=== PATIENT | female | born 1970 | race Caucasian/White ===

== ENCOUNTER 2021-12-25 08:00 | Outpatient (RCR) | payer BC, SELFPAY | END 2022-02-19 12:18 | disposition home or self-care (01) | PROVIDERS: PCP Family Medicine; Visit Provider Physician Assistant Surgical | DX: S82.409D Unspecified fracture of shaft of unspecified fibula, subsequent encounter for closed fracture with routine healing (principal); Z51.89 Encounter for other specified aftercare | CPT/HCPCS: 97110; 97112; 97161 ==

== ENCOUNTER 2022-01-23 11:57 | Outpatient (CLI) | payer BC, SELFPAY | END 2022-01-23 11:58 | disposition home or self-care (01) | LOC: OP CLINIC 11:58 | PROVIDERS: PCP Family Medicine; Visit Provider Surgery | DX: Z12.11 Encounter for screening for malignant neoplasm of colon (principal); K63.5 Polyp of colon; K62.1 Rectal polyp; K64.4 Residual hemorrhoidal skin tags; K57.30 Diverticulosis of large intestine without perforation or abscess without bleeding; D17.5 Benign lipomatous neoplasm of intra-abdominal organs; Z86.010 Personal history of colon polyps | CPT/HCPCS: 45385; 88305; 99153; J1200; J2250; J3010 ==

== ENCOUNTER 2022-02-10 10:02 | Outpatient (CLI) | payer BC, SELFPAY ==
--- NOTE | 2022-02-10 10:15 | MR_ITS ---
[address] [address] Phone:?[phone] Fax:?[phone] Referring Physician Information: Izabela James D.O. [address] [facility] [address] Phone:?[phone] Fax:?[phone] Patient:Quique Ardon D.O.B:?1970 Sex:?Female Phone:?[phone] [facility] MRN:?[id number] Exam Date:?02/10/2022 ? EXAM: MRI EXAMINATION OF THE LEFT KNEE CLINICAL INFORMATION: Left knee pain. No specific injury. History of fibular fracture. Chronic symptoms. TECHNICAL INFORMATION: Coronal PD and STIR. Axial PD and T2 fat saturation. Sagittal PD and PD fat saturation images acquired. INTERPRETATION: Bones: There is a minimal appearance of marrow edema signal and cystic change within the tibial eminence. Localized mild marrow edema signal involves the far posterior periphery of the medial femoral condyle. Localized minimal subchondral cystic change involves the trochlear groove. No other abnormal bone marrow edema pattern is identified. Ligaments and tendons: The medial collateral ligament is intact, without acute sprain or tear. The iliotibial band, fibular collateral ligament, biceps femoris tendon and popliteus tendon all are intact. There is generalized increased signal intensity and thickening involving the anterior cruciate ligament. The posterior cruciate ligament is intact. Extensor Mechanism: The patellar and quadriceps tendons are intact. The medial and lateral retinacula are intact. Knee Joint: There is a moderate knee joint effusion. No discrete popliteal cyst. There is no discrete loose body seen within the joint. Medial Compartment: There is no evidence for discrete medial meniscal tear. No displaced flap fragment or parameniscal cyst. 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 No other significant changes of chondromalacia. Lateral Compartment: There is no evidence for discrete lateral meniscal tear. No displaced flap fragment or parameniscal cyst. There is no focal chondral defect. No other significant changes of chondromalacia. Patellofemoral articulation: There is a grade 2 appearance of chondromalacia involving the central midline patella and adjacent medial facet. There is a 1.5 cm mediolateral by 0.8 cm craniocaudal segment of grade 3 to IV chondromalacia involving the central midline and medial trochlear groove. CONCLUSION: 1. No evidence for a meniscal tear. 2. Generalized increased signal intensity and thickening in keeping with mucoid degeneration of the ACL. 3. Localized mild marrow edema signal may be related to osseous contusion involving the posterior periphery of the medial femoral condyle. 4. 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 5. 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 KES Electronically signed on 02/10/2022 2:05:00 PM by Ernst Brandon M.D.
== END 2022-02-10 10:03 | disposition home or self-care (01) ==
LOC: MRI 10:03
PROVIDERS: PCP Family Medicine; Visit Provider Family Medicine
DX: M25.562 Pain in left knee (principal); M22.42 Chondromalacia patellae, left knee; S89.92XS Unspecified injury of left lower leg, sequela
CPT/HCPCS: 73721

== ENCOUNTER 2022-04-20 20:42 | Emergency (ER) | payer BC, SELFPAY ==
[2022-04-20 20:54] VITALS: BP 187/115; PULSE 113; RESP 20; TEMP 36.4; O2SAT 98; BMI 44.1
--- NOTE | 2022-04-20 21:21 | CRLHL7_ITS ---
For Patients: As a result of the Century Cures Act, medical imaging exams and procedure reports are released immediately into your electronic medical record. You may view this report before your referring provider. If you have questions, please contact your health care provider. INDICATION: Trauma TECHNIQUE: CT thoracic spine without contrast. COMPARISON: None FINDINGS: Vertebral alignment: Alignment is normal. Vertebrae: There are no fractures or suspicious bony lesions. Discs and facet joints: Disc spaces and facets are within normal limits. Extraspinal findings: Status post cholecystectomy. Small hiatal hernia. IMPRESSION: Unremarkable thoracic spine CT. Status post cholecystectomy. Small hiatal hernia. Please note that all CT scans at this facility use dose modulation, iterative reconstruction, and/or weight-based dosing when appropriate to reduce radiation dose to as low as reasonably achievable. Dictated by Susie Espinoza MD @ 04/20/2022 11:36:16 PM (Electronically Signed)
--- NOTE | 2022-04-20 21:21 | CRLHL7_ITS ---
For Patients: As a result of the Century Cures Act, medical imaging exams and procedure reports are released immediately into your electronic medical record. You may view this report before your referring provider. If you have questions, please contact your health care provider. INDICATION: Trauma TECHNIQUE: CT cervical spine without contrast. COMPARISON: None FINDINGS: Vertebral alignment: Alignment is normal. Vertebrae: There are no fractures or suspicious bony lesions. Discs and facet joints: Unremarkable. Extraspinal findings: Paraspinous soft tissues are unremarkable. IMPRESSION: No acute fracture or subluxation. Please note that all CT scans at this facility use dose modulation, iterative reconstruction, and/or weight-based dosing when appropriate to reduce radiation dose to as low as reasonably achievable. Dictated by Susie Espinoza MD @ 04/20/2022 11:39:14 PM (Electronically Signed)
--- NOTE | 2022-04-20 21:21 | CRLHL7_ITS ---
For Patients: As a result of the Century Cures Act, medical imaging exams and procedure reports are released immediately into your electronic medical record. You may view this report before your referring provider. If you have questions, please contact your health care provider. INDICATION: Trauma. TECHNIQUE: CT chest was acquired with 100 cc Isovue 370 IV contrast. COMPARISON: None. FINDINGS: Lungs and Airways: No mass or consolidation. No endoluminal lesion. Heart and Mediastinum: The visualized portions of the thyroid are normal. No axillary or supraclavicular lymphadenopathy. No mediastinal, hilar or retrocrural lymphadenopathy. Normal heart size. Normal caliber aorta. Pleura: The pleural spaces are normal. Abdomen: Likely diffuse hepatic steatosis. Cholecystectomy. Tiny hiatal hernia. Bilateral punctate nonobstructing nephrolithiasis versus early passage of contrast into the collecting systems bilaterally. Bones and soft tissues: The skeletal structures and soft tissues of the chest wall are unremarkable. IMPRESSION: No acute traumatic injury within the chest. Please note that all CT scans at this facility use dose modulation, iterative reconstruction, and/or weight-based dosing when appropriate to reduce radiation dose to as low as reasonably achievable. Dictated by Ag Butler MD @ 04/20/2022 11:48:56 PM (Electronically Signed)
[2022-04-20 21:43] LABS: Basophils Absolute Auto 0.01 K/uL (0.00-0.30); Basophils Percent Auto 0.1 % (0.0-3.0); Eosinophils Absolute Auto 0.05 K/uL (0.00-0.50); Eosinophils Percent Auto 0.5 % (0.0-7.0); Hematocrit 47.2 % (33.0-51.0); Hemoglobin* 15.8 gm/dL (12.0-16.0); Immature Granulocytes Abs Auto 0.02 K/uL (0.00-0.30); Immature Granulocytes Pct Auto 0.2 %; Lymphocytes Percent Auto 12.8 % (20-44); Mean Corpuscular HGB Conc 34 gm/dL (32-36); Mean Corpuscular Hemoglobin 28 pg (26-34); Mean Corpuscular Volume 84 fL (80-100); Monocytes Percent Auto 5.2 % (0.0-11.0); Neutrophils Percent Auto 81.2 % (42.0-72.0); Platelet Count* 257 K/uL (140-440); RDW Coefficient of Variation % 12.8 % (11.5-15.5); White Blood Count* 10.77 K/uL (4.50-11.00)
[2022-04-20 21:57] LABS: Slide Review Reflex No
[2022-04-20 21:58] LABS: Chloride* 108 mmol/L (96-114); Potassium* 3.8 mmol/L (3.6-5.1); Sodium* 138 mmol/L (135-149)
[2022-04-20 22:01] LABS: Blood Urea Nitrogen* 18 mg/dL (7-30); Calcium* 8.7 mg/dL (8.4-10.6); Carbon Dioxide* 22 mmol/L (20-32); Creatinine* 0.9 mg/dL (0.5-1.5); Est. Creatinine Clearance* 65.05; Estimated Glomerular Filt Rate 76 ml/min; Glucose* 117 mg/dL (60-115)
[2022-04-20] MEDS: 0.9 % SODIUM CHLORIDE 1000 ml 1,000 ML IV (22:09)
[2022-04-20 23:06] VITALS: BP 151/90; PULSE 80; RESP 18; O2SAT 98
--- NOTE | 2022-04-21 00:43 | ED.GENADULT ---
HPI - General Adult General Date Seen: 04/21/22 Chief complaint: Back Injury/Pain Stated complaint: Hurt back snowwibiling Time Seen by Provider: 04/20/22 21:10 Source: patient Mode of arrival: ambulatory Limitations: no limitations History of Present Illness HPI narrative: Patient is a 51-year-old woman who was normal bili earlier today. She says that she did not see an upcoming ravine and [facility] She says that it kind of took her breath away when she had the bottom, and she did develop some pain just to the right of her thoracic spine near her shoulder blade at the time. She continued to [facility], finished out the time, went home. She says as the afternoon and evening went on, she noticed that her heart rate seemed to be elevated, and she was having trouble laying down because she would develop pain going up into her neck, and if she lays wrong she would have some tingling in her arms. She has not had any weakness or numbness. She has not had any chest pain unless she says when she hunches her shoulders forward she does have some pain in her chest. No difficulty breathing. She did not hit her head, no loss of consciousness. She does not have any neck pain specifically except what radiates up from her shoulder blade. No lower back pain, no abdominal pain. Related Data Home Medications Medication Instructions Recorded Confirmed ibuprofen 200 mg tablet mg PRN 04/20/22 Previous Rx's Medication Instructions Recorded peg 3350-electrolytes 236 240 ml PO Q10M #4,000 mL 12/18/21 gram-22.74 gram-6.74 gram-5.86 gram solution (Golytely) Allergies Allergy/AdvReac Type Severity Reaction Status Date / Time crab Allergy Unknown itchy Verified 04/20/22 22:57 tongue, lips Review of Systems Status of ROS: Reports: 10 or more systems reviewed and unremarkable except as noted in History and below PFSH PFS Surgical History History of 3 sections (2002) Status post cholecystectomy (2003) Family History Father Myocardial infarction, Onset Age: 50 Colonic polyp Stroke, Onset Age: 77 Maternal Grandfather Lung cancer Mother Blood disorder Factor V Leiden Factor II deficiency Social History Narrative: does not have regular exercise regimen , 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 Breathing: Nonlabored. Lungs clear. Circulation: Pulses intact. No external bleeding. Disability: GCS 15. Secondary survey: Vital signs reviewed In general, an alert, nontoxic Head: Normocephalic, atraumatic. Eyes: Pupils are equal reactive. Extraocular movements full. ENT: No facial trauma. Dentition intact. Neck: No midline cervical tenderness. No anterior neck trauma. Chest: No visible signs of chest trauma. No tenderness to palpation. Heart is mildly tachycardic, regular. No murmur. Lungs clear bilaterally. Abdomen: No visible signs of trauma. Soft, nondistended, nontender to palpation. Back: No visible signs of trauma. There is a little bit of tenderness just to the right of the spine near the upper scapula. Otherwise back is nontender. Extremities: Atraumatic and nontender to palpation. Neurologic: Alert, conversant, moves all extremities to command. Skin: Warm and dry, no abrasions or lacerations. Const: Vital Signs, click to edit/add: Vital Signs - 24 hr 04/20/22 20:54 04/20/22 23:06 Temperature 97.6 F Pulse Rate [Right Pulse Oximeter] 113 H 80 Respiratory Rate 20 18 Blood Pressure [Le ft Upper Arm] 187/115 H 151/90 H Pulse Oximetry 98 98 Oxygen Delivery Me thod Room Air Room Air Documenting provider has reviewed patient's vital signs: yes Course Course Hospital Course: We placed an IV here, declined anything for pain initially. My initial suspicion was for possibly a compression fracture in the upper thoracic spine. She did have mild tachycardia, raising the possibility for possibly some kind of internal bleeding, vessel injury, thoracic contusion, or other traumatic injury. I gave her a L of normal saline, I ordered CT scans of the cervical spine, thoracic spine and of the chest. She did have significant hypertension on arrival with a blood pressure of 187/115. She did not have any abdominal pain or tenderness, and mechanism seemed unlikely to generate significant abdominal trauma. I also ordered a CBC and metabolic panel. Her hemoglobin was unremarkable at 15.8. Metabolic panel was unremarkable. By my review of her CT scans she did not have any evidence of fracture of the cervical or thoracic spine, and I did not see evidence of pneumothorax, hemothorax, or other obvious traumatic injury on her chest CT. Radiology read all [address] scans as negative for acute findings. She felt improved after fluids here, her heart rate was down to 80, blood pressure was down 151/90, and she felt significantly better. We did talk about the possibility of disc herniation which we have not entirely ruled out tonight. She is neurologically intact. I think it is reasonable to let her go home, but if pain is persistent I would like her to be seen again in clinic and additional imaging may be needed. Discussed with her that if this is all soft tissue related, she should be improving over the next few days. Ibuprofen Tylenol, gave her a few oxycodone if needed over the next couple of days. Ice. Return for severe symptoms, new symptoms such as shortness of breath, fainting, or other worsening. Vital Signs Vital signs: Initial Vital Signs Temperature 97.6 F 04/20/22 20:54 Temperature Source Temporal Artery Scan 04/20/22 20:54 Pulse Rate 113 H 04/20/22 20:54 Pulse Rhythm 04/20/22 20:54 Respiratory Rate 20 04/20/22 20:54 Blood Pressure 187/115 H 04/20/22 20:54 Blood Pressure Mean 139 04/20/22 20:54 Blood Pressure Position Sitting 04/20/22 20:54 Pulse Oximetry 98 04/20/22 20:54 Oxygen Delivery Method 04/20/22 20:54 Vital Signs Temperature 97.6 F 04/20/22 20:54 Pulse Rate 113 H 04/20/22 20:54 Respiratory Rate 20 04/20/22 20:54 Blood Pressure 187/115 H 04/20/22 20:54 Pulse Oximetry 98 04/20/22 20:54 Oxygen Delivery Method 04/20/22 20:54 Temperature 97.6 F 04/20/22 20:54 Pulse Rate 80 04/20/22 23:06 Respiratory Rate 18 04/20/22 23:06 Blood Pressure 151/90 H 04/20/22 23:06 Pulse Oximetry 98 04/20/22 23:06 Oxygen Delivery Method 04/20/22 23:06 Medical Decision Making Lab Data Labs: Lab Results 04/20/22 04/20/22 Range/Units 21:34 21:34 WBC 10.77 (4.50-11.00) K/uL RBC 5.60 H (4.00-5.20) m/uL Hgb 15.8 (12.0-16.0) gm/dL Hct 47.2 (33.0-51.0) % MCV 84 (80-100) fL MCH 28 (26-34) pg MCHC 34 (32-36) gm/dL RDW Coeff of Caitlin 12.8 (11.5-15.5) % Plt Count 257 (140-440) K/uL Neut % (Auto) 81.2 H (42.0-72.0) % Lymph % (Auto) 12.8 L (20-44) % [place] % (Auto) 5.2 (0.0-11.0) % Eos % (Auto) 0.5 (0.0-7.0) % Baso % (Auto) 0.1 (0.0-3.0) % Neut # (Auto) 8.70 H (1.7-7.0) K/uL Lymph # (Auto) 1.40 (0.90-2.90) K/uL [place] # (Auto) 0.60 (0.00-0.90) K/UL Eos # (Auto) 0.05 (0.00-0.50) K/uL Baso # (Auto) 0.01 (0.00-0.30) K/uL Sodium 138 (135-149) mmol/L Potassium 3.8 (3.6-5.1) mmol/L Chloride 108 (96-114) mmol/L Carbon Dioxide 22 (20-32) mmol/L BUN 18 (7-30) mg/dL Creatinine 0.9 (0.5-1.5) mg/dL Estimated Creat Clear 65.05 Estimated GFR 76 ml/min Glucose 117 H (60-115) mg/dL Calcium 8.7 (8.4-10.6) mg/dL Discharge Plan Discharge Clinical Impression: Thoracic back pain Patient Disposition: Home, Self-Care Condition: Improved Instructions: Thoracic Pain (ED) Additional Instructions: Ibuprofen 400 mg plus Tylenol 1000 mg 3 times daily with food, oxycodone if needed for severe uncontrolled pain. If you are not feeling better over the next few days, follow up in clinic for recheck. If you have any severe new symptoms, chest pain, difficulty breathing, fainting, etcetera, return to the emergency department for re-evaluation. Prescriptions: No Action ibuprofen 200 mg tablet PRN peg 3350-electrolytes [Golytely] 236-22.74-6.74 -5.86 gram recon soln 240 ml PO Q10M Qty: 4000 0RF Rx Instructions: Follow colonoscopy prep instructions given in clinic. Follow Up/Referrals: Sherie Godwin MD [Primary Care Provider] - Stand Alone Forms: [employer] Info Instructions
== END 2022-04-21 00:24 | disposition home or self-care (01) ==
PROVIDERS: Emergency Provider Emergency Medicine; PCP Family Medicine
DX: M54.6 Pain in thoracic spine (principal); V86.52XA Driver of snowmobile injured in nontraffic accident, initial encounter
CPT/HCPCS: 36415; 71260; 72125; 72128; 80048; 85025; 99283; 99284; J7030; Q9967

== ENCOUNTER 2023-05-12 08:15 | Outpatient (CLI) | payer BC, SELFPAY | END 2023-05-12 08:16 | disposition home or self-care (01) | LOC: NFLDREF 05-13 11:12 | PROVIDERS: PCP Family Medicine; Referring Provider Family Medicine; Visit Provider Family Medicine | DX: E78.5 Hyperlipidemia, unspecified (principal); I10 Essential (primary) hypertension | CPT/HCPCS: 80053; 80061 ==

== ENCOUNTER 2023-05-19 16:21 | Outpatient (CLI) | payer BC, SELFPAY ==
--- NOTE | 2023-05-19 16:40 | MM_ITS ---
Patient: IESHA MALIK Facility:?[facility] Patient ID:?[id number] Site Patient ID:?[id number]. Site :?1970 Study:?XRay-Breast Bilateral 3D W/CAD-05/19/2023 5:35:40 PM Ordering Physician:Sherie Sotelo Final Report: BILATERAL SCREENING MAMMOGRAM WITH COMPUTER-AIDED DETECTION AND TOMOSYNTHESIS TECHNIQUE: CC and MLO views were obtained. These mammographic images have been obtained using full-field digital technique. These mammographic images were interpreted with the benefit of computer-aided detection. Breast Tomosynthesis was used in this interpretation. COMPARISON FILM: 04/02/21, 11/09/18. FINDINGS: The breasts are almost entirely fatty IMPRESSION: There is no radiographic evidence for malignancy. ASSESSMENT: BI-RADS Category 1: Negative RECOMMENDATION: Routine screening mammogram in 1 year. A lay language report of this examination will be provided to the patient. Ag Jay M.D. Diagnostic Radiologist [email or web address] AVIS/[email or web address] Transcribed: 12:06 p.gege [email or web address]/Dictated by: Ag Jay MD @ 06/01/2023 9:56:00 AM Signed by:?Ag Jay MD @06/01/2023 12:12:20 PM (Electronic Signature)
== END 2023-05-19 16:22 | disposition home or self-care (01) ==
LOC: MAMMO 16:22
PROVIDERS: PCP Family Medicine; Visit Provider Family Medicine
DX: Z12.31 Encounter for screening mammogram for malignant neoplasm of breast (principal)
CPT/HCPCS: 77063; 77067

== ENCOUNTER 2023-05-29 08:04 | Outpatient (CLI) | payer BC, SELFPAY | END 2023-05-29 08:05 | disposition home or self-care (01) | LOC: NFLDREF 06-01 02:57 | PROVIDERS: PCP Family Medicine; Referring Provider Family Medicine; Visit Provider Family Medicine | DX: F41.1 Generalized anxiety disorder (principal); I10 Essential (primary) hypertension; R73.01 Impaired fasting glucose | CPT/HCPCS: 80048 ==

== ENCOUNTER 2023-07-13 08:10 | Outpatient (CLI) | payer BC, SELFPAY ==
--- OUTSIDE RECORDS SUMMARY | 2023-07-31 09:56 | XMS_ITS | Clinical Summary ---
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 Maximum of 3200 mg in 24 hours. 60 Tablet 03/16/2023 Active cyclobenzaprine (FLEXERIL) 10 mg tabletIndications:Acu te bilateral low back pain without sciatica Take 1 Tablet (10 mg) by mouth at bedtime if needed for Muscle Spasm. 30 Tablet 03/16/2023 Active Social History Tobacco Use Types Packs/Day Years Used Date Smoking Tobacco: Some Days Cigarettes Smokeless Tobacco: Never Tobacco Cessation:Ready to Q uit: Not Asked; Counseling Given: Not Answered Alcohol Use Standard Drinks/Week Comments Yes 0 (1 standard drink = 0.6 oz pur e alcohol) rare Social Connections Answer Date Recorded Frequency of Communication with Friends and Fami ly Not on file 01/15/2022 Sex and Gender Information Value Date Recorded Sex Assigned at Not on file Gender Identity Not on file Sexual Orientation Not on file Obstetrics History Last Filed Vital Signs Vital Sign Reading Time Taken Comments Blood Pressure 168/100 03/16/2023 7:54 AM [employer] AGENT Pulse 76 03/16/2023 7:51 AM [employer] INS[employer]ANCE AGENT Temperature - - Respiratory Rate 20 03/16/2023 7:51 AM [employer] INSUR[employer] AGENT Oxygen Saturation 99% 01/15/2022 3:37 PM [employer]ENT Inhaled Oxygen Concentration - - Weight 129.7 kg (286 lb) 03/16/2023 7:51 AM [employer] INSURANCE AGENT Height - - Body Mass Index - - Plan of Treatment Health Maintenance Due Date Last Done Comments Pneumococcal series for age 6-64 (1 of 2 - PCV) 1974 Tdap 12/12/1979 Depression screening for age 12+ 1980 HIV for age 15-65 12/12/1983 BMI (ht and wt on same day) for age 18+ 1986 Hepatitis C screening for ag e 18-79 1986 Tetanus booster 1988 Colonoscopy through age 75 2013 Lipids for age 45-75 2013 Mammogram for age 45-75 2013 Zoster (shingles) series for age 50+ (1 of 2) 2018 COVID-19 vaccine series (2022-24 season) 2022 01/08/2022, 06/28/2021, 12/27/2020, Additional history exists Influenza for age 50-64 10/25/2023 Pap test for age 21-65 01/24/2024 01/23/2021, 2020 Procedures Procedure Name Priority Date/Time Associated Diagnosis Comments HPV THIN PREP Routine 01/23/2021 8:10 AM [employer] AGENT from Last 3 Months or Most Recently Relevant to Health Maintenance Results * HPV HIGH RISK (01/23/2021 8:10 AM [employer] INSURANCE AGENT) TYPE 16 Negative Negative 01/25/2021 11:36 AM [employer] INSURANCE AGENT [facility] TYPE 18 Negative Negative 01/25/2021 11:36 AM PROP[employer] INSURANCE AGENT [facility] OTHER HIGH RISK TYPES Negative Negative 01/25/2021 11:36 AM [employer] INSURANCE AGENT [facility] Other (Cervical/Vagina l) 01/23/2021 8:10 AM [employer] INSURANCE AGENT 01/24/2021 8:39 AM PROPERTY AND CASUALTY INSURANCE AGENT [facility] - 01/25/2021 11:36 AM [employer] INSURANCE AGENT HPV types 16, 18, 31, 33, 35, 39, 45, 51, 52, 56, 58, 59, 66 and 68 DNA were undetectable or below the pre-set threshold. Methodology: Priyank Demarco 4800 HPV Test Sherie Godwin MD [employer] [facility] [address] [place] [address], from Last 3 Months or Most Recently Relevant to Health Maintenance Care Teams Covering Machine Operator Helper Relationship Specialty Start Date End Date Pcp, No . PCP - General 01/15/22
== END 2023-07-13 08:11 | disposition home or self-care (01) ==
LOC: NFLDREF 07-31 09:54
PROVIDERS: PCP Family Medicine; Referring Provider Family Medicine; Visit Provider Family Medicine
DX: F41.1 Generalized anxiety disorder (principal); I10 Essential (primary) hypertension; R73.01 Impaired fasting glucose; E66.01 Morbid (severe) obesity due to excess calories
CPT/HCPCS: 80053; 84443

== ENCOUNTER 2024-06-08 07:40 | Outpatient (CLI) | payer BC, SELFPAY | END 2024-06-08 07:41 | disposition home or self-care (01) | LOC: NFLDREF 06-10 17:44 | PROVIDERS: PCP Family Medicine; Referring Provider Family Medicine; Visit Provider Family Medicine | DX: E78.5 Hyperlipidemia, unspecified (principal); I10 Essential (primary) hypertension; R73.03 Prediabetes | CPT/HCPCS: 80053; 80061 ==

== ENCOUNTER 2024-09-15 13:46 | Outpatient (CLI) | payer BC, SELFPAY ==
--- NOTE | 2024-09-15 13:40 | CRLHL7_ITS ---
For Patients: As a result of the Century Cures Act, medical imaging exams and procedure reports are released immediately into your electronic medical record. You may view this report before your referring provider. If you have questions, please contact your health care provider. INDICATION: BILATERAL SCREENING MAMMOGRAM, ASYMPTOMATIC 53 Y/O FEMALE COMPARISON: 05/19/2023, 04/02/2021, 11/09/2018 TECHNIQUE: Digital mammogram in CC and MLO projections including computer-aided detection (CAD) and tomosynthesis. BREAST COMPOSITION: The breasts are almost entirely fatty. FINDINGS: No suspicious findings. ASSESSMENT: BI-RADS 2 Benign RECOMMENDATION: Annual screening mammogram. A lay language report of this examination will be provided to the patient. Dictated by: Hugo Brush MD @ 09/20/2024 09:52:43 (Electronically Signed)
== END 2024-09-15 13:47 | disposition home or self-care (01) ==
LOC: MAMMO 13:46
PROVIDERS: PCP Family Medicine; Visit Provider Family Medicine
DX: Z12.31 Encounter for screening mammogram for malignant neoplasm of breast (principal)
CPT/HCPCS: 77063; 77067